=== PATIENT | male | born 2000 | race Hispanic/Latino ===

== ENCOUNTER 2025-01-19 02:25 | Emergency (ER) | payer SELFPAY ==
[~2025-01-19] VITALS: Ht 172.7 cm; Wt 73.9 kg
--- NOTE | 2025-01-19 02:31 | ERN ---
General Chief Complaint: Abdominal Pain Stated Complaint: C/O ABD PAIN W/PAIN TO TOES Time Seen by MD: 02:27 History of Present Illness Initial Comments 24-year-old male no past medical history here for evaluation of abdominal pain. Patients pain started five days ago for which he thought it was stress however he persisted to the point where he decided to come to the emergency room today. Pain is constant. No medications were taken prior to arrival. No fever no cough no shortness a breath. No chest pain or palpitations. No similar symptoms in the past. Prior to me leaving the room patient also complaining of dots on his toe he was concerned and he would like me to see this. Allergies: Coded Allergies: No Known Allergies (Unverified Allergy, Unknown, 01/19/25) Review of Systems: was completed, & the rest were negative. Physical Exam General Appearance: (+) no apparent distress Orientation: (+) alert, (+) oriented x 3 Head/Face Trauma: No Eye: bilateral eye normal inspection, bilateral eye PERRL, bilateral eye EOMI Ear, Nose, Throat: (+) hearing grossly normal, (+) normal ENT inspection, (+) moist mucous membraine Respiratory: (+) chest non-tender, (+) lungs clear, (+) well ventilated Heart: (+) regular; (-) murmur Gastrointestinal: (+) soft, (+) non-tender Neurologic/Psychiatric: (+) normal speech, (+) no motor defecits Skin Comment Well-circumscribed honey-colored areas around the toes and intertriginous regions Results Laboratory and Microbiology Lab and Micro Result Laboratory Tests Test 01/19/25 02:41 01/19/25 03:24 Urine Color COLORLESS (YELLOW) Urine Appearance CLEAR (CLEAR) Urine pH 6.0 (5.0-8.0) Urine Specific Sparks 1.008 (1.001-1.031) Urine Protein NEGATIVE mg/dL (NEGATIVE) Urine Glucose (UA) NEGATIVE mg/dL (NEGATIVE) Urine Ketones NEGATIVE mg/dL (NEGATIVE) Urine Occult Blood NEGATIVE (NEGATIVE) Urine Nitrate NEGATIVE (NEGATIVE) Urine Bilirubin NEGATIVE mg/dL (NEGATIVE) Urine Urobilinogen 0.2 mg/dL (0.2-1.0) Urine Leukocyte Esterase NEGATIVE Radha/uL White Blood Count 7.2 K/uL (4.8-10.8) Red Blood Count 4.75 MIL/uL (4.50-6.20) Hemoglobin 14.6 g/dL (14.0-18.0) Hematocrit 42.9 % (42-54) Mean Corpuscular Volume 90.3 fL (79-99) Mean Corpuscular Hemoglobin 30.7 pg (27.0-33.0) Mean Corpuscular Hemoglobin Concent 34.0 g/dL (32.0-36.0) Red Cell Distribution Width 12.3 % (11.0-15.5) Platelet Count 258 K/uL (130-400) Mean Platelet Volume 10.2 fL (7.5-10.5) Immature Granulocyte % (Auto) 0.6 % (0-1) Neutrophils (%) (Auto) 51.5 % (40.0-77.0) Lymphocytes (%) (Auto) 39.7 % (21.0-51.0) Monocytes (%) (Auto) 5.4 % (3.0-13.0) Eosinophils (%) (Auto) 2.1 % (0.0-8.0) Basophils (%) (Auto) 0.7 % (0.0-5.0) Neutrophils # (Auto) 3.7 K/uL (1.8-7.7) Lymphocytes # (Auto) 2.9 K/uL (1.0-4.8) Monocytes # (Auto) 0.4 K/uL (0.1-1.0) Eosinophils # (Auto) 0.15 K/uL (0.00-0.70) Basophils # (Auto) 0.05 K/uL (0.00-0.20) Absolute Immature Granulocyte (auto 0.04 K/uL (0-1) Nucleated Red Blood Cells 0.0 % (0.0-0.19) Sodium Level 140 mmol/L (136-145) Potassium Level 3.9 mmol/L (3.5-5.1) Chloride Level 103 mmol/L (101-111) Carbon Dioxide Level 28 mmol/L (21-32) Blood Urea Nitrogen 12 mg/dL (7-18) Creatinine 1.0 mg/dL (0.5-1.3) Glomerular Filtration Rate Calc 106 mL/min (>90) Random Glucose 104 mg/dL (70-105) Total Calcium 9.1 mg/dL (8.5-10.1) Total Bilirubin 0.7 mg/dL (0.2-1.0) Direct Bilirubin 0.2 mg/dL (0.0-0.3) Aspartate Amino Transf (AST/SGOT) 32 U/L (10-37) Alanine Aminotransferase (ALT/SGPT) 67 U/L (12-78) Alkaline Phosphatase 99 U/L (50-136) Total Protein 7.2 g/dL (6.0-8.3) Albumin 4.0 g/dL (3.5-5.0) Lipase 34 U/L (16-77) MDM 24-year-old male here for evaluation of abdominal pain for the past five days. Has been intermittent. He is also complaining of toe pain. He does not have a primary care doctor thus he decided to come to the emergency room. Further history reveals that patient has mother recently at this hospital from GI cancer. Abd [ain started one day after mom passed. There may be a component of anxiety/acute stress disorder/bereavement to the patient's complaints. Still we will get a abdominal workup and reassess. Disposition pending results of labs and clinical improvement. ED Course Orders Procedure Category Date Status Time Dicyclomine Hcl PHA 01/19/25 Complete (Bentyl 20mg Tab) 03:00 Acetaminophen 500mg PHA 01/19/25 Complete Tab (Tylenol 500mg T 03:00 Cbc With Differential LAB 01/19/25 Complete 03:04 Basic Metabolic Panel LAB 01/19/25 Complete 03:04 Hepatic Function Panel LAB 01/19/25 Complete 03:04 Lipase LAB 01/19/25 Complete 03:04 Urinalysis Profile LAB 01/19/25 Complete 03:04 Lorazepam 2 Mg PHA 01/19/25 Complete (Ativan) 03:30 Current Medications Medications (Trade) Dose Ordered Sig/Brenda Route PRN Reason Start Time Stop Time Status Last Admin Dose Admin Acetaminophen (TYLenol 500MG TAB) 500 mg ONCE ONCE PO 01/19/25 03:00 01/19/25 03:01 DC 01/19/25 03:10 Dicyclomine HCl (Bentyl 20mg Tab) 20 mg ONCE ONCE PO 01/19/25 03:00 01/19/25 03:01 DC 01/19/25 03:11 Lorazepam (AtiVAN) 2 mg ONCE ONCE PO 01/19/25 03:30 01/19/25 03:31 DC 01/19/25 03:43 Vital Signs Date Time Temp Pulse Resp B/P (MAP) Pulse Ox O2 Delivery O2 Flow Rate FiO2 01/19/25 02:47 97.5 86 17 140/80 100 Room Air* 0 21 01/19/25 02:27 97.2 73 20 146/77 100 Room Air DX & DISP Disposition: Discharge Departure Impression: Primary Impression: Tinea pedis Additional Impressions: Bereavement, Acute stress reaction, Abdominal pain Condition: Stable Scripts Hydroxyzine HCl (Atarax) 25 Mg Tab 1 CAP PO TID for anxiety for 10 Days, #30 CAP 0 Refills Prov: RODRIGUEZ JALLOH MD 01/19/25 Terbinafine HCl (Terbinafine HCl) 1 % Cream..g. 1 APPL TP BID for 14 Days, #30 GM 0 Refills Prov: RODRIGUEZ JALLOH MD 01/19/25 Referrals: SELF,REFERRAL (PCP) RODRIGUEZ JALLOH MD Jan 19, 2025 02:31
[2025-01-19] MEDS: DICYCLOMINE HCL 20 MG TAB PO ONE (03:11)
[2025-01-19 03:34] LABS: IMMATURE GRANULOCYTE ABSOLUTE 0.04 K/uL (0-1); NUCLEATED RED BLOOD CELLS 0.0 % (0.0-0.19); PLATELET COUNT (AUTO) 258 K/uL (130-400); RED BLOOD CELL COUNT(AUTO) 4.75 MIL/uL (4.50-6.20); RED CELL DISTRIBUTION WIDTH 12.3 % (11.0-15.5); WHITE BLOOD COUNT (AUTO) 7.2 K/uL (4.8-10.8)
[2025-01-19 03:49] LABS: CREATININE 1.0 mg/dL (0.5-1.3); GLOMERULAR FILTR. RATE CALC 106.0 mL/min (>90); GLUCOSE,RANDOM 104.0 mg/dL (70-105); SODIUM SERUM 140.0 mmol/L (136-145); UREA NITROGEN, BLOOD 12.0 mg/dL (7-18)
[2025-01-19 03:52] LABS: ASPARTATE AMINOTRANSFERASE 32.0 U/L (10-37); TOTAL PROTEIN, SERUM 7.2 g/dL (6.0-8.3)
[2025-01-19 03:58] LABS: APPEARANCE,URINE CLEAR (CLEAR); GLUCOSE, URINE (UA) NEGATIVE (NEGATIVE); LEUKOCYTE ESTERASE ,URINE NEGATIVE Leu/uL (NEGATIVE); NITRATE,URINE NEGATIVE (NEGATIVE); OCCULT BLOOD,URINE NEGATIVE (NEGATIVE)
[2025-01-19 04:09] LABS: ADD UA MICROSCOPIC NO
[2025-01-19] MEDS ORDERED: HYD25 PO (04:24)
[2025-01-19] MEDS ORDERED: TERB30CR8 TP (04:24)
[2025-01-19 04:30] VITALS: BP 131/83; PULSE 75; RESP 14; TEMP 97.5; O2SAT 100
== END 2025-01-19 04:35 | disposition home or self-care (01) ==
LOC: EDH 02:25
DX: B35.3 Tinea pedis (principal); F43.0 Acute stress reaction
CPT/HCPCS: 36415; 80048; 80076; 81003; 83690; 85025; 99284